=== PATIENT | female | born 1965 | race African-American/Black ===

== ENCOUNTER 2022-08-24 13:17 | Emergency (ER) | payer SELFPAY ==
[2022-08-24] MEDS ORDERED: HYDROcodone/Acetaminophen 10/325 mg Tablet ONE (14:01)
== END 2022-08-24 17:00 | disposition home or self-care (01) ==
LOC: CSHERS 13:17
DX: M76.52 Patellar tendinitis, left knee (principal); M79.672 Pain in left foot; I10 Essential (primary) hypertension; F17.210 Nicotine dependence, cigarettes, uncomplicated; Z86.73 Personal history of transient ischemic attack (TIA), and cerebral infarction without residual deficits